=== PATIENT | male | born 1975 | race Asian ===

== ENCOUNTER 2018-01-04 21:21 | Emergency (ER) | payer OTHER ==
[~2018-01-04] VITALS: Ht 195.6 cm; Wt 95.0 kg
[2018-01-05 01:06] VITALS: BP 125/71
== END 2018-01-05 01:12 | disposition home or self-care (01) ==
LOC: ER 21:21
DX: S06.0X9A Concussion with loss of consciousness of unspecified duration, initial encounter (principal); W01.0XXA Fall on same level from slipping, tripping and stumbling without subsequent striking against object, initial encounter; Y93.89 Activity, other specified; Y92.488 Other paved roadways as the place of occurrence of the external cause
CPT/HCPCS: 70450; 99284